=== PATIENT | male | born 1935 | race Caucasian/White ===

== ENCOUNTER → 2016-10-24 | Outpatient (CLI) | payer MEDICARE, OTHER ==
[~2016-10-24] MED LIST: ASCO-96 PO; FINA5TAB4 PO; FLUT16SP NAS; GLUC1500 PO; IBUP-1222 PO; IPRA30SP NAS; LISI-170 PO; MIRALAX; MULT-717 PO; OMEG1CAP24 PO; PSYL0.5215 PO; RIVA20TA PO; SIMV40TA3 PO; TAMS0.4C2 PO; TIMOLOL LEFTEYE; TRAZ50TA18 PO; TRIAMCINOLON TP; VIT1CAPS9 PO
[2016-10-24 12:12] LABS: BLOOD UREA NITROGEN 18 mg/dL (7-18)
[2016-10-24 12:16] LABS: ASPARTATE AMINO TRANSFERASE 24 U/L (15-37)
== END | disposition home or self-care (01) ==
LOC: STAR 10:57
PROVIDERS: ATTEND Surgery
DX: Z01.818 Encounter for other preprocedural examination (principal); R94.31 Abnormal electrocardiogram [ECG] [EKG]; I44.7 Left bundle-branch block, unspecified; I48.91 Unspecified atrial fibrillation
CPT/HCPCS: 36415; 80053; 93005

== ENCOUNTER 2016-11-02 09:06 | Day surgery (SDC) | payer MEDICARE, OTHER ==
[~2016-11-02] VITALS: Ht 180.3 cm; Wt 85.0 kg
[2016-11-02] MEDS ORDERED: BUPIVACAINE/PF 0.5% ONE (09:07)
[2016-11-02] MEDS ORDERED: EPINEPHRINE 1 MG/ML, 1ML ONE (09:07)
[2016-11-02] MEDS ORDERED: BACITRACIN 50,000 UNIT ONE (09:07)
[2016-11-02] MEDS ORDERED: LACTATED RINGERS 1,000 ML IV SCH (09:33)
[2016-11-02 09:41] VITALS: BP 120/76
[2016-11-02] MEDS ORDERED: LIDOCAINE 1%, 2ML SQ PRN (10:00)
[2016-11-02] MEDS ORDERED: MIDAZOLAM 1 MG/ML, 2ML ONE (12:11)
[2016-11-02] MEDS ORDERED: FENTANYL PF 100 MCG/2ML ONE ×3 (12:11→14:10)
[2016-11-02] MEDS ORDERED: GLYCOPYRROLATE 0.2MG/1ML, 5ML ONE (12:21)
[2016-11-02] MEDS ORDERED: PROPOFOL 10 MG/ML, 20ML ONE (12:21)
[2016-11-02] MEDS ORDERED: CEFAZOLIN 1,000 MG ONE (12:21)
[2016-11-02] MEDS ORDERED: ONDANSETRON 2MG/ML, 2ML ONE (12:21)
[2016-11-02] MEDS ORDERED: DEXAMETHASONE 4 MG/ML, 1ML ONE (12:21)
[2016-11-02] MEDS ORDERED: NEOSTIGMINE 1 MG/ML, 10ML ONE (12:21)
[2016-11-02] MEDS ORDERED: ROCURONIUM 10 MG/ML ONE (12:21)
[2016-11-02] MEDS ORDERED: KETOROLAC 30 MG/1 ML ONE (12:21)
[2016-11-02] MEDS ORDERED: SUCCINYLCHOLINE 20 MG/ML, 10ML ONE (12:21)
[2016-11-02] MEDS ORDERED: DIAZEPAM 5 MG/ML, 2ML IVPush PRN (13:30)
[2016-11-02] MEDS ORDERED: PROMETHAZINE 25 MG/ML, 1ML IV PRN (13:30)
[2016-11-02] MEDS ORDERED: MEPERIDINE/PF 25MG/0.5ML IVPush PRN (13:30)
[2016-11-02] MEDS ORDERED: ALBUTEROL SULFATE 2.5 MG/3 ML NPPB PRN (13:30)
[2016-11-02] MEDS ORDERED: EPHEDRINE 50 MG/ML, 1ML IVPush PRN (13:30)
[2016-11-02] MEDS ORDERED: HYDROcodone/APAP 7.5-325MG/15ML UDC PO PRN (13:30)
[2016-11-02] MEDS ORDERED: METOPROLOL 1 MG/ML, 5ML IV PRN (13:30)
[2016-11-02] MEDS ORDERED: FENTANYL PF 100 MCG/2ML IV PRN (13:30)
[2016-11-02] MEDS ORDERED: OXYcodone 5 MG/5 ML ORAL.SOL UDC PO PRN (13:30)
[2016-11-02] MEDS ORDERED: hydrALAzine 20 MG/ML, 1ML IV PRN (13:30)
[2016-11-02] MEDS ORDERED: ACETAMINOPHEN 325 MG TABLET PO PRN (13:30)
[2016-11-02] MEDS ORDERED: HYDROmorphone 1 MG/ML, 1ML IV PRN (13:30)
[2016-11-02] MEDS ORDERED: ONDANSETRON 2MG/ML, 2ML IVPush PRN (13:30)
[2016-11-02] MEDS ORDERED: LABETALOL 5MG/ML, 20ML IV PRN (13:30)
[2016-11-02] MEDS ORDERED: ACETAMINOPHEN 325 MG TABLET ONE (14:10)
[2016-11-02] MEDS ORDERED: ACETAMINOPHEN 650 MG/20.3 ML UDC ONE (14:10)
[2016-11-02] MEDS ORDERED: OXYcodone 5 MG/5 ML ORAL.SOL UDC ONE (14:11)
== END 2016-11-02 19:25 | disposition home or self-care (01) ==
LOC: OUT 09:06
PROVIDERS: ATTEND Surgery
DX: K40.20 Bilateral inguinal hernia, without obstruction or gangrene, not specified as recurrent (principal); I48.91 Unspecified atrial fibrillation; I10 Essential (primary) hypertension; I71.4 Abdominal aortic aneurysm, without rupture
CPT/HCPCS: 49650; C1727; C1781; J0171; J0330; J0690; J1100; J1885; J2250; J2405; J2704; J2710; J3010; J3490; J7120

== ENCOUNTER 2017-01-25 10:37 | Day surgery (SDC) | payer MEDICARE, OTHER ==
[~2017-01-25] VITALS: Ht 180.3 cm; Wt 86.8 kg
[2017-01-25 11:08] VITALS: BP 112/85
[2017-01-25] MEDS ORDERED: PROPOFOL 10 MG/ML, 20ML ONE (13:40)
== END 2017-01-25 15:31 ==
LOC: CACL 10:37
PROVIDERS: ATTEND Internal Medicine Cardiovascular Disease
DX: I48.91 Unspecified atrial fibrillation (principal); I10 Essential (primary) hypertension; E78.00 Pure hypercholesterolemia, unspecified; Z87.891 Personal history of nicotine dependence; Z79.82 Long term (current) use of aspirin; Z88.8 Allergy status to other drugs, medicaments and biological substances
CPT/HCPCS: 92960; J2704

== ENCOUNTER → 2017-03-01 | Outpatient (CLI) | payer MEDICARE | END | disposition home or self-care (01) | LOC: CFH 08:27 | PROVIDERS: ATTEND Nurse Practitioner Family | DX: I48.0 Paroxysmal atrial fibrillation (principal); I10 Essential (primary) hypertension; I08.3 Combined rheumatic disorders of mitral, aortic and tricuspid valves | CPT/HCPCS: 93306 ==

== ENCOUNTER → 2017-04-07 | Outpatient (CLI) | payer MEDICARE ==
[~2017-04-07] MED LIST changes: -GLUC1500 PO; +GLUC15006 PO; +REGADENOSON 0.4 MG/5 ML SYRINGE ONE
== END ==
LOC: CFH 12:38
PROVIDERS: ATTEND Nurse Practitioner Family
DX: I48.0 Paroxysmal atrial fibrillation (principal)
CPT/HCPCS: 78452; 93017; A9502; J2785

== ENCOUNTER → 2017-05-19 | Outpatient (CLI) | payer MEDICARE, OTHER ==
[~2017-05-19] MED LIST changes: -REGADENOSON 0.4 MG/5 ML SYRINGE ONE
== END | disposition home or self-care (01) ==
LOC: CVU 07:23
PROVIDERS: ATTEND Internal Medicine Cardiovascular Disease
DX: I71.4 Abdominal aortic aneurysm, without rupture (principal); I10 Essential (primary) hypertension; I48.91 Unspecified atrial fibrillation; Z87.891 Personal history of nicotine dependence
CPT/HCPCS: 93978

== ENCOUNTER → 2017-10-09 | Outpatient (CLI) | payer MEDICARE, OTHER ==
[~2017-10-09] MED LIST changes: +TRAZ-136 PO; -TRAZ50TA18 PO
[2017-10-09 07:37] LABS: BASOPHILS # (AUTO) 0.07 x10^3/uL (0-0.1); BASOPHILS % (AUTO) 1 % (0-1); EOSINOPHILS # (AUTO) 0.23 x10^3/uL (0-0.4); EOSINOPHILS % (AUTO) 2 % (1-7); LYMPHOCYTES # (AUTO) 3.81 x10^3/uL (1-3.4); LYMPHOCYTES % (AUTO) 39 % (22-44); MD NO; MEAN CORPUSCULAR HEMOGLOBIN 32.9 pg (27.5-34.5); MEAN CORPUSCULAR HGB CONC 33.5 g/dL (33.2-36.2); MEAN CORPUSCULAR VOLUME 98.2 fL (81-97); MEAN PLATELET VOLUME 8.1 fL (7.4-10.4); MONOCYTES # (AUTO) 0.83 x10^3/uL (0.2-0.8); MONOCYTES % (AUTO) 9 % (2-9); NEUTROPHILS # (AUTO) 4.75 x10^3/uL (1.8-6.8); NEUTROPHILS % (AUTO) 49 % (42-75); PLATELET COUNT 203 x10^3/uL (130-400); RED BLOOD COUNT 4.56 x10^6/uL (4.38-5.82); RED CELL DISTRIBUTION WIDTH 14.2 % (9.4-14.8)
[2017-10-09 07:47] LABS: ALANINE AMINOTRANSFERASE 34 U/L (12-78); ALBUMIN 3.8 g/dL (3.4-5.0); ANION GAP 3 mmol/L (5-15); CALCIUM 9.4 mg/dL (8.5-10.1); CHLORIDE 108 mmol/L (98-107); CHOLESTEROL, TOTAL 164 mg/dL (140-239); CREATININE 1.06 mg/dL (0.7-1.3)
[2017-10-09 07:49] LABS: ALKALINE PHOSPHATASE 50 U/L (45-117); BILIRUBIN,TOTAL 0.5 mg/dL (0.2-1.0); CHOL/HDL RATIO 2.6; HDL CHOL % 38 % (26-37); HDL CHOLESTEROL (DIRECT) 62 mg/dL (40-60); LDL CHOLESTEROL,CALCULATED 75 mg/dL (54-169); LDL/HDL RATIO 1.2 (0.5-3.0); TOTAL PROTEIN 7.1 g/dL (6.4-8.2); TRIGLYCERIDES 134 mg/dL (50-200); VLDL CHOLESTEROL 27 mg/dL (0-25)
== END | disposition home or self-care (01) ==
LOC: LAB 07:19
PROVIDERS: ATTEND Internal Medicine
DX: E78.00 Pure hypercholesterolemia, unspecified (principal); I10 Essential (primary) hypertension; I71.4 Abdominal aortic aneurysm, without rupture
CPT/HCPCS: 36415; 80053; 80061; 85025

== ENCOUNTER → 2017-10-18 | Outpatient (CLI) | payer MEDICARE, OTHER ==
[2017-10-18 07:47] LABS: BASOPHILS # (AUTO) 0.06 x10^3/uL (0-0.1); BASOPHILS % (AUTO) 1 % (0-1); EOSINOPHILS # (AUTO) 0.18 x10^3/uL (0-0.4); EOSINOPHILS % (AUTO) 3 % (1-7); LYMPHOCYTES % (AUTO) 30 % (22-44); MD NO; MEAN CORPUSCULAR HEMOGLOBIN 32.4 pg (27.5-34.5); MEAN CORPUSCULAR HGB CONC 32.9 g/dL (33.2-36.2); MEAN CORPUSCULAR VOLUME 98.5 fL (81-97); MEAN PLATELET VOLUME 7.9 fL (7.4-10.4); MONOCYTES # (AUTO) 0.56 x10^3/uL (0.2-0.8); MONOCYTES % (AUTO) 8 % (2-9); NEUTROPHILS # (AUTO) 4.27 x10^3/uL (1.8-6.8); NEUTROPHILS % (AUTO) 59 % (42-75); PLATELET COUNT 183 x10^3/uL (130-400); RED CELL DISTRIBUTION WIDTH 14.1 % (9.4-14.8)
[2017-10-18 07:56] LABS: ALBUMIN 3.6 g/dL (3.4-5.0); CHLORIDE 109 mmol/L (98-107)
[2017-10-18 08:05] LABS: ALANINE AMINOTRANSFERASE 38 U/L (12-78); ALKALINE PHOSPHATASE 51 U/L (45-117); ANION GAP 5 mmol/L (5-15); BILIRUBIN,TOTAL 0.6 mg/dL (0.2-1.0); CALCIUM 8.8 mg/dL (8.5-10.1); CHOL/HDL RATIO 2.5; CHOLESTEROL, TOTAL 143 mg/dL (140-239); CREATININE 0.99 mg/dL (0.7-1.3); HDL CHOL % 40 % (26-37); HDL CHOLESTEROL (DIRECT) 57 mg/dL (40-60); LDL CHOLESTEROL,CALCULATED 57 mg/dL (54-169); TOTAL PROTEIN 6.8 g/dL (6.4-8.2); TRIGLYCERIDES 145 mg/dL (50-200); VLDL CHOLESTEROL 29 mg/dL (0-25)
== END | disposition home or self-care (01) ==
LOC: LAB 07:28
PROVIDERS: ATTEND Nurse Practitioner Primary Care
DX: I10 Essential (primary) hypertension (principal); E55.9 Vitamin D deficiency, unspecified; E78.00 Pure hypercholesterolemia, unspecified; Z87.891 Personal history of nicotine dependence
CPT/HCPCS: 36415; 80053; 80061; 82306; 85025

== ENCOUNTER → 2017-11-22 | Outpatient (CLI) | payer MEDICARE, OTHER ==
[2017-11-22 08:10] LABS: BASOPHILS # (AUTO) 0.03 x10^3/uL (0-0.1); BASOPHILS % (AUTO) 1 % (0-1); EOSINOPHILS # (AUTO) 0.22 x10^3/uL (0-0.4); EOSINOPHILS % (AUTO) 3 % (1-7); LYMPHOCYTES # (AUTO) 2.05 x10^3/uL (1-3.4); LYMPHOCYTES % (AUTO) 31 % (22-44); MD NO; MEAN CORPUSCULAR HEMOGLOBIN 32.7 pg (27.5-34.5); MEAN CORPUSCULAR HGB CONC 33.2 g/dL (33.2-36.2); MEAN CORPUSCULAR VOLUME 98.3 fL (81-97); MONOCYTES # (AUTO) 0.64 x10^3/uL (0.2-0.8); MONOCYTES % (AUTO) 10 % (2-9); NEUTROPHILS # (AUTO) 3.74 x10^3/uL (1.8-6.8); NEUTROPHILS % (AUTO) 56 % (42-75); PLATELET COUNT 189 x10^3/uL (130-400); RED BLOOD COUNT 4.36 x10^6/uL (4.38-5.82); RED CELL DISTRIBUTION WIDTH 14.9 % (9.4-14.8)
[2017-11-22 08:21] LABS: ALANINE AMINOTRANSFERASE 36 U/L (12-78); ALBUMIN 3.7 g/dL (3.4-5.0); ANION GAP 8 mmol/L (5-15); CALCIUM 8.9 mg/dL (8.5-10.1); CHLORIDE 108 mmol/L (98-107); CHOLESTEROL, TOTAL 138 mg/dL (140-239); CREATININE 0.88 mg/dL (0.7-1.3); TRIGLYCERIDES 113 mg/dL (50-200); VLDL CHOLESTEROL 23 mg/dL (0-25)
[2017-11-22 08:23] LABS: ALKALINE PHOSPHATASE 57 U/L (45-117); BILIRUBIN,TOTAL 0.8 mg/dL (0.2-1.0); CHOL/HDL RATIO 2.1; HDL CHOL % 47 % (26-37); HDL CHOLESTEROL (DIRECT) 65 mg/dL (40-60); LDL CHOLESTEROL,CALCULATED 50 mg/dL (54-169); LDL/HDL RATIO 0.8 (0.5-3.0); TOTAL PROTEIN 7.2 g/dL (6.4-8.2)
== END | disposition home or self-care (01) ==
LOC: LAB 07:46
PROVIDERS: ATTEND Nurse Practitioner Primary Care
DX: I10 Essential (primary) hypertension (principal); I48.91 Unspecified atrial fibrillation; E55.9 Vitamin D deficiency, unspecified
CPT/HCPCS: 36415; 80053; 80061; 82306; 85025

== ENCOUNTER 2018-03-07 11:27 | Emergency (ER) | payer MEDICARE, OTHER ==
[~2018-03-07] VITALS: Ht 180.3 cm; Wt 86.0 kg
[~2018-03-07 11:27] MED LIST changes: -TRAZ-136 PO; +TRAZ50TA66 PO
[2018-03-07 12:20] VITALS: BP 110/70
[2018-03-07 12:32] LABS: BASOPHILS # (AUTO) 0.03 x10^3/uL (0-0.1); BASOPHILS % (AUTO) 0 % (0-1); EOSINOPHILS # (AUTO) 0.09 x10^3/uL (0-0.4); EOSINOPHILS % (AUTO) 1 % (1-7); LYMPHOCYTES # (AUTO) 1.62 x10^3/uL (1-3.4); LYMPHOCYTES % (AUTO) 20 % (22-44); MD NO; MEAN CORPUSCULAR HEMOGLOBIN 32.4 pg (27.5-34.5); MEAN CORPUSCULAR HGB CONC 33.9 g/dL (33.2-36.2); MEAN CORPUSCULAR VOLUME 95.6 fL (81-97); MEAN PLATELET VOLUME 8.3 fL (7.4-10.4); MONOCYTES # (AUTO) 1.01 x10^3/uL (0.2-0.8); MONOCYTES % (AUTO) 13 % (2-9); NEUTROPHILS # (AUTO) 5.32 x10^3/uL (1.8-6.8); NEUTROPHILS % (AUTO) 66 % (42-75); PLATELET COUNT 222 x10^3/uL (130-400); RED BLOOD COUNT 4.05 x10^6/uL (4.38-5.82); RED CELL DISTRIBUTION WIDTH 14.6 % (9.4-14.8)
[2018-03-07] MEDS ORDERED: LISI-167 PO (12:32)
[2018-03-07] MEDS ORDERED: LACT1CAP63 PO (12:32)
[2018-03-07] MEDS ORDERED: ATOR40TA PO (12:32)
[2018-03-07] MEDS ORDERED: MELA1TAB8 PO (12:32)
[2018-03-07] MEDS ORDERED: PARO30TA3 PO (12:32)
--- NOTE | 2018-03-07 12:32 | NUR ---
BREAK RN: MED STUDENT AT BEDSIDE FOR EVAL AT THIS TIME. PT CURRENTLY RESTING ON GURNEY. NAD NOTED. SKIN PWD. RESP EVEN AND EQAUL. PT ABLE TO SPEAK IN FULL 10-12 WORD SENTENCES W/O DIFFICULTY. PT AO X 4. AT BEDSIDE. PT ON CONT CARDIAC, BP AND O2 MONITORS. A-FIB IN THE 80'S NOTED ON MONITOR. CALL LIGHT IWTHIN REACH. WILL CONT TO MONITOR PT.
[2018-03-07 12:43] LABS: ALBUMIN 3.4 g/dL (3.4-5.0); ANION GAP 8 mmol/L (5-15); CALCIUM 8.7 mg/dL (8.5-10.1); CHLORIDE 102 mmol/L (98-107); CREATININE 0.67 mg/dL (0.7-1.3)
[2018-03-07] MEDS ORDERED: FUROSEMIDE 40 MG TABLET ONE (13:29)
[2018-03-07] MEDS ORDERED: FUROSEMIDE 40 MG TABLET PO ONE (13:30)
--- NOTE | 2018-03-07 13:53 | NUR ---
Patient/Caregiver given discharge instructions and they have confirmed that they understand the instructions. Patient ambulatory using cane to wheelchair.
== END 2018-03-07 13:54 | disposition home or self-care (01) ==
LOC: ED 13:30
DX: I11.0 Hypertensive heart disease with heart failure (principal); I50.33 Acute on chronic diastolic (congestive) heart failure; I50.1 Left ventricular failure, unspecified; I48.91 Unspecified atrial fibrillation; N19 Unspecified kidney failure
CPT/HCPCS: 36415; 71045; 80048; 82040; 83880; 84484; 85025; 93005; 99284

== ENCOUNTER 2018-03-13 08:37 | Emergency (ER) | payer MEDICARE, OTHER ==
[~2018-03-13] VITALS: Ht 180.3 cm; Wt 92.0 kg
[~2018-03-13 08:37] MED LIST changes: +ATOR40TA PO; +LACT1CAP63 PO; +LISI-167 PO; +MELA1TAB8 PO; +PARO30TA3 PO
[2018-03-13 09:30] LABS: BASOPHILS # (AUTO) 0.06 x10^3/uL (0-0.1); BASOPHILS % (AUTO) 1 % (0-1); EOSINOPHILS # (AUTO) 0.06 x10^3/uL (0-0.4); EOSINOPHILS % (AUTO) 1 % (1-7); LYMPHOCYTES # (AUTO) 1.61 x10^3/uL (1-3.4); LYMPHOCYTES % (AUTO) 18 % (22-44); MD NO; MEAN CORPUSCULAR HEMOGLOBIN 31.8 pg (27.5-34.5); MEAN CORPUSCULAR VOLUME 96.4 fL (81-97); MEAN PLATELET VOLUME 8.5 fL (7.4-10.4); MONOCYTES # (AUTO) 0.85 x10^3/uL (0.2-0.8); MONOCYTES % (AUTO) 10 % (2-9); NEUTROPHILS # (AUTO) 6.23 x10^3/uL (1.8-6.8); NEUTROPHILS % (AUTO) 71 % (42-75); PLATELET COUNT 197 x10^3/uL (130-400); RED CELL DISTRIBUTION WIDTH 14.6 % (9.4-14.8)
[2018-03-13] MEDS ORDERED: SODIUM CHLORIDE FLUSH 10ML SYR IVF ONE (09:30)
[2018-03-13 09:45] LABS: ALBUMIN 3.5 g/dL (3.4-5.0); ANION GAP 9 mmol/L (5-15); CALCIUM 8.9 mg/dL (8.5-10.1); CHLORIDE 94 mmol/L (98-107)
[2018-03-13 09:51] LABS: ALANINE AMINOTRANSFERASE 24 U/L (12-78); ALKALINE PHOSPHATASE 68 U/L (45-117); BILIRUBIN,TOTAL 1.3 mg/dL (0.2-1.0); CREATININE 0.71 mg/dL (0.7-1.3); TOTAL PROTEIN 6.8 g/dL (6.4-8.2); TROPONIN I < 0.015 ng/mL (0.000-0.045)
--- NOTE | 2018-03-13 10:19 | NUR ---
LATE ENTRY FOR 0950: PT AMBULATED W/ CANE INDEPENDENTLY TO ED RESTROOM AND WAS ABLE TO PROVIDE UA.
--- NOTE | 2018-03-13 10:30 | NUR ---
POST VOID BLADDER SCAN AMOUNT: 182, MD AWARE
[2018-03-13 10:49] LABS: MICROSCOPIC NOT IND
[2018-03-13 10:51] LABS: CULTURE INDICATED? NO
--- NOTE | 2018-03-13 11:15 | NUR ---
PT SLIPPED WHILE WALKING TO RESTROOM USING DOORFRAME SUPPORT TO CONTROL DECENT TO GROUND. PT HAD SMALL SKIN TEAR ON KNEE WHICH HAS BEEN CLEANED & BANDAGED, AT BEDSIDE TO REASSESS PT. TO PRINT D/C INSTRUCTIONS & PT TO BE D/C'ED
[2018-03-13 12:07] VITALS: BP 116/57
[2018-03-14] MEDS ORDERED: FURO-93 PO (17:18)
[2018-03-14] MEDS ORDERED: POTA8CAP PO (17:18)
[2018-03-14] MEDS ORDERED: TIMO5SOL10 TP (17:22)
== END 2018-03-13 12:10 | disposition home or self-care (01) ==
LOC: ED 09:04
DX: I11.0 Hypertensive heart disease with heart failure (principal); I50.1 Left ventricular failure, unspecified; I48.91 Unspecified atrial fibrillation; N40.1 Benign prostatic hyperplasia with lower urinary tract symptoms; R33.8 Other retention of urine; M54.9 Dorsalgia, unspecified; G89.29 Other chronic pain
CPT/HCPCS: 36415; 71045; 80053; 81003; 83880; 84484; 85025; 93005; 99284

== ENCOUNTER → 2018-03-26 | Outpatient (CLI) | payer MEDICARE, OTHER ==
[~2018-03-26] MED LIST changes: +CEFD300C37 PO; +FURO-93 PO; +FURO40TA6 PO; +LISI5TAB7 PO; +METO25TA91 PO; +POTA8CAP PO; +SPIR25TA PO; +TIMO5SOL10 TP
== END | disposition home or self-care (01) ==
LOC: LAB 07:45
PROVIDERS: ATTEND Internal Medicine Cardiovascular Disease
DX: I11.0 Hypertensive heart disease with heart failure (principal); I50.23 Acute on chronic systolic (congestive) heart failure; I48.2 Chronic atrial fibrillation
CPT/HCPCS: 36415; 83880

== ENCOUNTER → 2018-04-06 | Outpatient (CLI) | payer MEDICARE, OTHER ==
[2018-04-06 08:45] LABS: ANION GAP 7 mmol/L (5-15); CALCIUM 8.9 mg/dL (8.5-10.1); CHLORIDE 107 mmol/L (98-107); CREATININE 0.93 mg/dL (0.7-1.3)
== END | disposition home or self-care (01) ==
LOC: LAB 08:18
PROVIDERS: ATTEND Internal Medicine Cardiovascular Disease
DX: I50.23 Acute on chronic systolic (congestive) heart failure (principal); I34.0 Nonrheumatic mitral (valve) insufficiency; I48.0 Paroxysmal atrial fibrillation; E78.00 Pure hypercholesterolemia, unspecified
CPT/HCPCS: 36415; 80048

== ENCOUNTER 2018-05-28 12:57 | Outpatient (CLI) | payer MEDICARE, OTHER | END 2018-05-28 23:59 | disposition home or self-care (01) | LOC: CFH 12:57 | PROVIDERS: ATTEND Internal Medicine Cardiovascular Disease | DX: I08.3 Combined rheumatic disorders of mitral, aortic and tricuspid valves (principal); I48.91 Unspecified atrial fibrillation; E78.5 Hyperlipidemia, unspecified; Z79.01 Long term (current) use of anticoagulants | CPT/HCPCS: 93306 ==

== ENCOUNTER → 2018-05-31 | Outpatient (CLI) | payer MEDICARE, OTHER ==
[2018-05-31 07:49] LABS: ANION GAP 4 mmol/L (5-15); CALCIUM 9.2 mg/dL (8.5-10.1); CHLORIDE 112 mmol/L (98-107); CREATININE 0.82 mg/dL (0.7-1.3)
== END | disposition home or self-care (01) ==
LOC: LAB 07:26
PROVIDERS: ATTEND Internal Medicine Cardiovascular Disease
DX: I11.0 Hypertensive heart disease with heart failure (principal); I50.23 Acute on chronic systolic (congestive) heart failure; I34.0 Nonrheumatic mitral (valve) insufficiency; I48.0 Paroxysmal atrial fibrillation; I71.4 Abdominal aortic aneurysm, without rupture; R53.83 Other fatigue
CPT/HCPCS: 36415; 80048

== ENCOUNTER 2019-07-18 09:18 | Outpatient (CLI) | payer MEDICARE ==
[~2019-07-18 09:18] MED LIST changes: +ATOR40TA78 PO; -FLUT16SP NAS; +FLUT16SP24 NAS; +POLY17PO5 PO; +POTA20TA6 PO; -POTA8CAP PO; +POTA8CAP20 PO; +SIMV40TA20 PO; -SIMV40TA3 PO; +SPIR25TA5 PO; +UBID100C24 PO
== END 2019-07-18 23:59 | disposition home or self-care (01) ==
LOC: CFH 09:18
PROVIDERS: ATTEND Internal Medicine Cardiovascular Disease
DX: I08.3 Combined rheumatic disorders of mitral, aortic and tricuspid valves (principal); I11.9 Hypertensive heart disease without heart failure; I25.5 Ischemic cardiomyopathy
CPT/HCPCS: 93306; 93356

== ENCOUNTER 2019-07-23 11:26 | Outpatient (CLI) | payer MEDICARE | END 2019-07-23 23:59 | disposition home or self-care (01) | LOC: CFH 11:26 | PROVIDERS: ATTEND Physician Assistant Medical | DX: I11.0 Hypertensive heart disease with heart failure (principal); I25.5 Ischemic cardiomyopathy; I34.0 Nonrheumatic mitral (valve) insufficiency; I47.2 Ventricular tachycardia; I48.0 Paroxysmal atrial fibrillation; I50.23 Acute on chronic systolic (congestive) heart failure; I71.4 Abdominal aortic aneurysm, without rupture; R53.83 Other fatigue; Z95.810 Presence of automatic (implantable) cardiac defibrillator | CPT/HCPCS: 71046 ==

== ENCOUNTER 2019-11-13 14:47 | Outpatient (CLI) | payer MEDICARE | END 2019-11-13 23:59 | disposition home or self-care (01) | LOC: CVU 14:47 | PROVIDERS: ATTEND Internal Medicine Cardiovascular Disease | DX: I34.0 Nonrheumatic mitral (valve) insufficiency (principal); I51.7 Cardiomegaly; Z95.810 Presence of automatic (implantable) cardiac defibrillator | CPT/HCPCS: 93308; 93321; 93325 ==

== ENCOUNTER → 2019-12-26 | Outpatient (CLI) | payer MEDICARE | END | disposition home or self-care (01) | LOC: CFH 10:25 | PROVIDERS: ATTEND Physician Assistant Medical | DX: I11.0 Hypertensive heart disease with heart failure (principal); R53.83 Other fatigue; I34.0 Nonrheumatic mitral (valve) insufficiency; I25.5 Ischemic cardiomyopathy; I48.0 Paroxysmal atrial fibrillation; I71.4 Abdominal aortic aneurysm, without rupture; I47.2 Ventricular tachycardia; I50.23 Acute on chronic systolic (congestive) heart failure; Z95.810 Presence of automatic (implantable) cardiac defibrillator | CPT/HCPCS: 71046 ==

== ENCOUNTER → 2020-07-27 | Outpatient (CLI) | payer MEDICARE ==
[2020-07-27 07:53] LABS: ALANINE AMINOTRANSFERASE 57 U/L (12-78); ALBUMIN 3.7 g/dL (3.4-5.0); ANION GAP 7 mmol/L (5-15); CALCIUM 8.8 mg/dL (8.5-10.1); CHLORIDE 103 mmol/L (98-107)
[2020-07-27 08:07] LABS: ALKALINE PHOSPHATASE 68 U/L (45-117); BILIRUBIN,TOTAL 0.9 mg/dL (0.2-1.0); TOTAL PROTEIN 7.4 g/dL (6.4-8.2)
== END | disposition home or self-care (01) ==
LOC: LAB 07:25
PROVIDERS: ATTEND Nurse Practitioner Family
DX: I11.0 Hypertensive heart disease with heart failure (principal); I47.2 Ventricular tachycardia; I48.0 Paroxysmal atrial fibrillation; I50.23 Acute on chronic systolic (congestive) heart failure; I25.5 Ischemic cardiomyopathy; I34.0 Nonrheumatic mitral (valve) insufficiency
CPT/HCPCS: 36415; 80053; 80162; 83880

== ENCOUNTER 2020-10-21 12:24 | Outpatient (CLI) | payer MEDICARE ==
[~2020-10-21 12:24] MED LIST changes: +POTA-143 PO; -POTA20TA6 PO
[2020-10-21 13:00] LABS: ALANINE AMINOTRANSFERASE 37 U/L (12-78); ALBUMIN 3.6 g/dL (3.4-5.0); ANION GAP 7 mmol/L (5-15); CALCIUM 8.7 mg/dL (8.5-10.1); CHLORIDE 106 mmol/L (98-107); CREATININE 0.85 mg/dL (0.7-1.3)
[2020-10-21 13:04] LABS: ALKALINE PHOSPHATASE 79 U/L (45-117); BILIRUBIN,TOTAL 0.7 mg/dL (0.2-1.0); TOTAL PROTEIN 7.3 g/dL (6.4-8.2)
== END 2020-10-21 23:59 | disposition home or self-care (01) ==
LOC: LAB 12:24
PROVIDERS: ATTEND Nurse Practitioner Family
DX: I11.0 Hypertensive heart disease with heart failure (principal); I50.23 Acute on chronic systolic (congestive) heart failure; I25.5 Ischemic cardiomyopathy; I34.0 Nonrheumatic mitral (valve) insufficiency; I47.2 Ventricular tachycardia; I48.0 Paroxysmal atrial fibrillation; I48.20 Chronic atrial fibrillation, unspecified; I71.4 Abdominal aortic aneurysm, without rupture; R53.83 Other fatigue; Z95.810 Presence of automatic (implantable) cardiac defibrillator
CPT/HCPCS: 36415; 80053; 83880

== ENCOUNTER 2020-10-22 08:08 | Outpatient (CLI) | payer MEDICARE | END 2020-10-22 23:59 | disposition home or self-care (01) | LOC: LAB 08:08 | PROVIDERS: ATTEND Nurse Practitioner Family | DX: I10 Essential (primary) hypertension (principal); E78.5 Hyperlipidemia, unspecified; R53.83 Other fatigue; G47.19 Other hypersomnia ==